=== PATIENT | female | born 1975 | race Caucasian/White ===

== ENCOUNTER 2022-05-04 03:42 | Emergency (ER) | payer BC, MEDICAID, SELFPAY ==
[2022-05-04 03:43] VITALS: BP 138/67; PULSE 75; RESP 16; TEMP 36.6; O2SAT 98; BMI 23.7
[2022-05-04 03:51] VITALS: BP 133/67; PULSE 70; RESP 16; TEMP 36.6; O2SAT 97
--- NOTE | 2022-05-04 04:05 | EDS_ITS ---
HPI History of Present Illness Chief Complaint: Edema Narrative Narrative: Patient is a 47-year-old female who states over the past 2 days she has noticed some increased swelling to the right side of her jaw/neck. She denies any trauma. She denies any fevers or chills difficulty breathing or swallowing. She states that the area has increased in size over the past 24 hours and this concerned her and therefore she comes in for evaluation. PFSH PFS Medical History Depression Hypertension Irregular heart beat Smoker Home Medications amoxicillin 875 mg-potassium clavulanate 125 mg tablet 1 tab PO BID 10 days #20 tabs 05/04/22 [Rx Last Taken Unknown] prednisone 20 mg tablet 40 mg PO DAILY 5 days #10 tabs 05/04/22 [Rx Last Taken Unknown] Allergy/AdvReac Type Severity Reaction Status Date / Time sulfamethoxazole Allergy Hives Verified 05/04/22 03:47 [From Bactrim] trimethoprim [From Bactrim] Allergy Hives Verified 05/04/22 03:47 Social History Smoking Status: Current every day smoker tobacco type: cigarettes ROS ROS ED Constitutional Constitutional ED: Denies chills or fever(s) ENT ENT ED: Reports other Details: Positive jaw/neck mass/swelling ; Denies sore throat Cardiovascular Cardiovascular: Denies chest pain Respiratory/Chest Respiratory/Chest: Denies cough or dyspnea Gastrointestinal Gastrointestinal: Denies abdominal pain, diarrhea, nausea or vomiting Genitourinary Genitourinary ED: Denies dysuria Musculoskeletal Musculoskeletal: Denies myalgias or neck pain Integumentary Denies rash Neurologic Neurologic: Denies headache(s) Hematologic/Lymphatic Hematologic/Lymphatic: Denies easy bleeding or easy bruising EXAM Physical Exam Const Vital Signs: 05/04/22 03:43 05/04/22 03:49 05/04/22 03:51 Temperature 97.8 F 97.8 F Temperature Source Oral Oral Pulse Rate 75 70 Respiratory Rate 98 H 16 Respiratory Pattern Normal Blood Pressure 138/67 H 133/67 H Blood Pressure Mean 90 89 Pulse Ox 97 Oxygen Delivery Method Room Air Room Air Positive well nourished and well developed General Appearance ED: well developed HEENT Reports moist mucous membranes HEENT Narrative: Patient has mild soft tissue swelling along the right anterior/inferior jaw. The area is approximately 1 x 1 cm and firm and movable. There is pain on palpation at the site. There is no overlying erythema or warmth. There is no brawny edema noted in the submental space to suggest Shahbaz's angina. Area of pain and swelling is most consistent with salivary gland. No meningeal signs noted. No crepitance. No pain with external ambulation of the thyroid cartilage. No tongue or lip swelling noted. No oral lesions or dental abscess present. No trismus change in voice or difficulty with secretions. Eyes PERRL and EOMs intact bilaterally Neck supple Neck Narrative: Soft tissue changes in the neck as documented above Resp normal respiratory effort and clear to auscultation bilaterally Cardio regular rate and regular rhythm Extremity normal to inspection Neuro oriented x3 and CN's II-XII intact bilaterally Sensorium / Orientation: alert Psych mental status grossly normal Skin no rashes or lesions noted MDM MDM MDM Narrative Medical decision making narrative: Patient presented to the ER afebrile and in no acute distress. She denied any difficulty breathing or swallowing and she had no change in voice. The area of her swelling was most consistent with the salivary gland. There is no brawny edema in the submental space to suggest Shahbaz's angina. At this time as there is no overlying erythema or warmth she is afebrile and she has no difficulty with secretions or breathing I do not feel that blood work or an imaging study would help. There is concern this is an infectious versus inflammatory versus obstructive process. Therefore should be given antibiotics and steroids to cover both the infection and inflammatory process. However she has no signs of systemic infection or respiratory difficulty there is no need for further work- up and patient can follow-up on an outpatient basis Discharge Plan Triage Chief Complaint: Edema ED Provider: Aurelio Luis Dx/Rx/DC Orders Clinical Impression: Acute sialoadenitis Instructions: ED Salivary Gland Infection, ED Salivary Gland Stones Prescriptions: New prednisone 20 mg tablet 40 mg PO DAILY 5 Days Qty: 10 0RF amoxicillin-pot clavulanate 875-125 mg tablet 1 tab PO BID 10 Days Qty: 20 0RF Primary Care Provider: Care Physician,No Primary Referrals: Star Jackson MD [Med Staff - Active Staff] - NOT,DEFINED [Non-Staff] - Activity Restrictions/Additional Instructions: Please take the medication as prescribed to cover for both infection and inflammation of the salivary gland. If you develop difficulty breathing or swallowing or you notice a fever over 100.4 or have any further concerns please return for repeat evaluation. Disposition Disposition: Home, Self Care
[2022-05-04] MEDS: predniSONE 20 MG Tablet 40 MG PO (04:10)
[2022-05-04] MEDS: Amox/Clavulanate 875 MG Tablet PO (04:11)
[2022-05-04 04:15] VITALS: BP 138/75; PULSE 87; RESP 16; O2SAT 97
== END 2022-05-04 04:17 | disposition home or self-care (01) ==
PROVIDERS: Emergency Provider Emergency Medicine; Visit Provider Emergency Medicine
DX: K11.21 Acute sialoadenitis (principal); I10 Essential (primary) hypertension; R60.9 Edema, unspecified; F17.210 Nicotine dependence, cigarettes, uncomplicated; Z79.52 Long term (current) use of systemic steroids
CPT/HCPCS: 99283

== ENCOUNTER 2022-07-08 09:08 | Emergency (ER) | payer BC, MEDICAID, SELFPAY ==
[2022-07-08 09:09] VITALS: O2SAT 97
[2022-07-08 09:10] VITALS: BP 169/116; PULSE 107; RESP 16; TEMP 37.3; O2SAT 98; BMI 21.9
--- NOTE | 2022-07-08 09:29 | EX.ED.DYSGE1 ---
HPI History of Present Illness Chief Complaint: General Illness Detail of Chief Complaint: Fever, cough, body aches, vomiting Informant: patient Narrative Narrative: Patient presents to the emergency department with complaint of fever, cough, body aches that started yesterday around midnight. Patient states that she has not vomited since yesterday at 5 PM. She feels like she might be on the upswing. She had subjective fever at home with chills but did not take her temperature. Patient denies sick contacts. She did take a home COVID test that was negative. She denies shortness of breath. She denies chest pain. She denies urinary symptoms. PFSH PFS Medical History Depression Fibromyalgia Hypertension Irregular heart beat Smoker Home Medications amoxicillin 875 mg-potassium clavulanate 125 mg tablet 1 tab PO BID 10 days #20 tabs 05/04/22 [Rx Last Taken Unknown] prednisone 20 mg tablet 40 mg PO DAILY 5 days #10 tabs 05/04/22 [Rx Last Taken Unknown] Allergy/AdvReac Type Severity Reaction Status Date / Time sulfamethoxazole Allergy Hives Verified 07/08/22 09:13 [From Bactrim] trimethoprim [From Bactrim] Allergy Hives Verified 07/08/22 09:13 Social History Smoking Status: Current every day smoker tobacco type: cigarettes ROS ROS ED Review of Systems ROS Unobtainable: other Constitutional Constitutional ED: Reports lethargy; Denies chills, fever(s), sweats or weight loss Eyes Eyes: Denies blurry vision, change in vision or diplopia ENT ENT ED: Denies rhinorrhea or sore throat Cardiovascular Cardiovascular: Denies chest pain, orthopnea or racing heartbeat Respiratory/Chest Respiratory/Chest: Reports cough; Denies dyspnea, dyspnea on exertion, orthopnea or sputum Gastrointestinal Gastrointestinal: Reports nausea and vomiting; Denies abdominal pain or diarrhea Genitourinary Genitourinary ED: Denies dysuria, hematuria or urinary frequency Musculoskeletal Musculoskeletal: Denies arthralgias, back pain, myalgias or neck pain Integumentary Denies abscess, Abrasions or rash Neurologic Neurologic: Denies headache(s) or weakness Psychiatric Psychiatric: Denies anxiety, depression or suicidal thoughts Endocrine Endocrinology: Denies polydipsia, polyphagia or polyuria Hematologic/Lymphatic Hematologic/Lymphatic: Denies easy bleeding, easy bruising or lymphadenopathy Allergic/Immunologic Allergic/Immunologic ED: Denies mouth swelling, tongue swelling or urticaria EXAM Physical Exam Const Vital Signs: 07/08/22 09:10 07/08/22 09:43 07/08/22 09:09 Temperature 99.1 F Temperature Source Temporal Pulse Rate 107 H Respiratory Rate 16 Respiratory Effort Normal Non-Labored Respiratory Pattern Normal Blood Pressure 169/116 H Blood Pressure Mean 133 Pulse Ox 98 97 Oxygen Delivery Method Room Air Room Air Positive well nourished and well developed General Appearance ED: well developed and NAD HEENT Reports TM's clear and moist mucous membranes normocephalic and atraumatic; Negative for trauma or tenderness Tympanic Membrane ED: Yes TM's clear Eyes PERRL and EOMs intact bilaterally General Eye ED: Negative for pale conjunctiva or scleral icterus Neck no lymphadenopathy, supple and no JVD General: Negative for tenderness Chest Wall inspection of chest normal and palpation of chest normal Chest: Negative for tenderness Resp normal respiratory effort and clear to auscultation bilaterally Effort and Inspection: Negative for respiratory distress or pain with movement Auscultation: Negative for rhonchi, wheezes or diminished lung sounds Cardio regular rate, regular rhythm, S1 normal heart sound, S2 normal heart sound and no murmurs Peripheral Pulses: pulses 2+ throughout GI normal to inspection, nondistended, normoactive bowel sounds, soft to palpation, non-tender, non-distended and no masses Back/Spine no CVA tenderness and no thoracic nor lumbar tenderness Extremity normal to inspection General Extremety ED: Negative for edema General Extremity: Negative for edema Neuro oriented x3, CN's II-XII intact bilaterally, no sensory deficits noted and gait normal Sensorium / Orientation: awake, alert, oriented to person, oriented to place and oriented to time Motor Exam: strength 5/5 throughout and strength abnormal Psych mental status grossly normal Skin no rashes or lesions noted and no wounds MDM MDM MDM Narrative Medical decision making narrative: Patient had a negative rapid COVID and negative rapid flu. I suspect a viral syndrome. Patient advised on symptomatic care. Patient advised to return if increasing shortness of breath, dehydration, or condition should worsen anyway. Lab Data Attestation: I reviewed the patient's lab results. Discharge Plan Triage Chief Complaint: General Illness ED Provider: Miroslava Bunn Dx/Rx/DC Orders Clinical Impression: Acute viral syndrome Instructions: ED Viral Syndrome (Adult) Prescriptions: No Action prednisone 20 mg tablet 40 mg PO DAILY 5 Days Qty: 10 0RF amoxicillin-pot clavulanate 875-125 mg tablet 1 tab PO BID 10 Days Qty: 20 0RF Primary Care Provider: Care Physician,No Primary Referrals: rByan Mcclelland MD [Med Staff - Nuclear Security Officer] - 3-5 Days Care Physician,No Primary [Primary Care Provider] - Disposition Disposition: Home, Self Care
== END 2022-07-08 11:46 | disposition home or self-care (01) ==
PROVIDERS: Emergency Provider Emergency Medicine; Visit Provider Emergency Medicine
DX: B34.9 Viral infection, unspecified (principal); F17.210 Nicotine dependence, cigarettes, uncomplicated
CPT/HCPCS: 87428; 99282

== ENCOUNTER 2022-08-16 14:44 | Emergency (ER) | payer BC, MEDICAID, SELFPAY ==
[2022-08-16 14:45] VITALS: BP 168/92; PULSE 82; RESP 15; TEMP 36.3; O2SAT 99; BMI 24.3
--- NOTE | 2022-08-16 15:20 | EDS_ITS ---
HPI History of Present Illness HPI Narrative: Patient presents with a cat bite to her right hand that occurred yesterday. Patient states she was trying to move the cat when the cat bit her. Patient states that the redness and swelling became worse today. Patient denies any fevers or chills. Patient noted some drainage from her right ring finger today. Patient states her pain is worse with flexion of her finger. Patient describes her pain as aching. Patient denies any paresthesias or weakness. Patient is unsure of her last tetanus. Patient states she does not think that the cat was rabid. However, she states the cat was a stray Chief Complaint: Bite Informant: patient Occured/Mechanism Comment: Cat bite Onset/Context/Timing Onset: Yesterday Context: Sudden Onset Timing: Continuous Quality of Pain: Aching Location: Right ring finger and right hand Worsened by: Movement Relieved by: Nothing Associated Symptoms Associated Symptoms: Negative for Parasthesia, Weakness or Loss of Funtion Narrative Tetanus Immunization: Unknown PFSH PFSH Medical History Depression Fibromyalgia Hypertension Irregular heart beat Smoker Home Medications prednisone 20 mg tablet 40 mg PO DAILY 5 days #10 tabs 05/04/22 [Rx Last Taken Unknown] amoxicillin 875 mg-potassium clavulanate 125 mg tablet 1 tab PO BID 10 days #20 tabs 08/16/22 [Rx Last Taken Unknown] Allergy/AdvReac Type Severity Reaction Status Date / Time sulfamethoxazole Allergy Hives Verified 08/16/22 14:45 [From Bactrim] trimethoprim [From Bactrim] Allergy Hives Verified 08/16/22 14:45 Social History Smoking Status: Current every day smoker tobacco type: cigarettes ROS ROS ED Constitutional Constitutional ED: Denies chills or fever(s) Eyes Eyes: Denies blurry vision or change in vision ENT ENT ED: Denies rhinorrhea or sore throat Cardiovascular Cardiovascular: Denies chest pain or palpitations Respiratory/Chest Respiratory/Chest: Denies cough or dyspnea Gastrointestinal Gastrointestinal: Denies nausea or vomiting Genitourinary Genitourinary ED: Denies dysuria or hematuria Musculoskeletal Musculoskeletal: Denies back pain or neck pain Integumentary Denies abscess or rash Neurologic Neurologic: Denies headache(s) or weakness Allergic/Immunologic Allergic/Immunologic ED: Denies mouth swelling or urticaria EXAM Physical Exam Const Vital Signs: 08/16/22 14:45 Temperature 97.4 F L Temperature Source Temporal Pulse Rate 82 Respiratory Rate 15 Blood Pressure 168/92 H Blood Pressure Mean 117 Pulse Ox 99 Oxygen Delivery Method Room Air Positive well nourished and well developed General Appearance ED: well developed and NAD Neck full ROM and supple Extremity Extremity Narrative: There is edema and erythema over the dorsal aspect of the right ring finger and third and fourth MCP joint areas. There is some limited range of motion in fl exion of the PIP and DIP joints of the right ring finger. There is some mild drainage from the PIP joint area of the right ring finger. Sensation was intact to light touch in all digits. Capillary refill was less than 2 seconds in all digits. Neuro oriented x3, CN's II-XII intact bilaterally, moves all extremities, no focal motor deficits and no sensory deficits noted Sensorium / Orientation: alert Motor Exam: strength 5/5 throughout Psych mental status grossly normal MDM MDM MDM Narrative Medical decision making narrative: Patient was given a tetanus booster. Patient was given a dose of Augmentin here. Bacitracin dressing will be applied. Patient was instructed to follow-up with her primary care physician in 5 to 7 days. Patient was given a prescription for Augmentin. Patient understands and is agreeable with the plan. All questions were answered. Discharge Plan Triage Chief Complaint: Bite ED Provider: Bryan Villegas Dx/Rx/DC Orders Clinical Impression: Cat bite of right hand, Cellulitis of right hand Instructions: ED Cat Bite Prescriptions: Continued amoxicillin-pot clavulanate 875-125 mg tablet 1 tab PO BID 10 Days Qty: 20 0RF No Action prednisone 20 mg tablet 40 mg PO DAILY 5 Days Qty: 10 0RF Primary Care Provider: Care Physician,No Primary Referrals: Bryan Mcclelland MD [Med Staff - Gauge And Instrument Inspector] - 3-5 Days Care Physician,No Primary [Primary Care Provider] - Disposition Disposition: Home, Self Care
[2022-08-16] MEDS: Amox/Clavulanate 875 MG Tablet PO (15:39)
[2022-08-16] MEDS: Diphth,Pertuss(Acell),Tet Vac 0.5 ML Vial IM (15:39)
== END 2022-08-16 15:59 | disposition home or self-care (01) ==
PROVIDERS: Emergency Provider Emergency Medicine; Visit Provider Emergency Medicine
DX: S61.451A Open bite of right hand, initial encounter (principal); L03.113 Cellulitis of right upper limb; I10 Essential (primary) hypertension; F17.210 Nicotine dependence, cigarettes, uncomplicated; W55.01XA Bitten by cat, initial encounter; Z23 Encounter for immunization
CPT/HCPCS: 90471; 90715; 99282

== ENCOUNTER 2022-10-13 09:04 | Emergency (ER) | payer BC, MEDICAID, SELFPAY ==
[2022-10-13 09:05] VITALS: BP 133/91; PULSE 83; RESP 15; TEMP 36.2; O2SAT 97; BMI 25.4
--- NOTE | 2022-10-13 09:17 | EKG12_ITS ---
Test Reason : CP Blood Pressure : / mmHG Vent. Rate : 082 BPM Atrial Rate : 082 BPM P-R Int : 140 ms QRS Dur : 094 ms QT Int : 392 ms P-R-T Axes : 045 001 030 degrees QTc Int : 457 ms Normal sinus rhythm Incomplete right bundle branch block Borderline ECG Confirmed by GLORIA LERMA, YEHUDA ([id number]), editor news VIVIAN NAVA ([id number]) on 10/19/2022 6:47:58 AM Referred By: ALFREDO/DK Confirmed By:IRENA CASTRO MD
--- NOTE | 2022-10-13 09:17 | RAD_ITS ---
STUDY: X-RAY CHEST REASON FOR EXAM: Female, 47 years old. Chest pain TECHNIQUE: Single AP portable view of the chest. COMPARISON: None. FINDINGS: EKG electrodes are seen. The lungs are clear and expanded. There is no demonstrated pleural abnormality. Normal size heart. Normal mediastinum and vannesa. Normal visualized pulmonary arteries. Normal visualized aortic arch and descending thoracic aorta. Normal visualized thoracic spine. Normal visualized ribs, clavicles, and shoulders. There is no demonstrated abnormality of the visualized soft tissue structures of the upper abdomen. RAD/Chest 1 View (Portable) IMPRESSION: Normal x-ray examination of the chest. Electronically Signed: Trery Ramirez MD at 9:47 EDT ,
--- NOTE | 2022-10-13 09:23 | EDS_ITS ---
HPI History of Present Illness Chief Complaint: Chest Pain Informant: patient Onset/Context/Timing Onset: Today and Hours Timing: Intermittent Quality: Positive for Dull Location: Substernal Current Severity: Gone Maximum Severity: Mild Worsened By: Nothing Relieved By: Nothing Associated Symptoms: Negative for Nausea, Vomiting, Diaphoresis, Dyspnea, Cough, Fever, Lightheadedness, Acid Reflux or Palpitations Narrative Narrative: 47-year-old female with past medical history of PTSD and anxiety. Says she was at work this morning around 1 AM and got lower sternal discomfort. Says she was doing anything exertional. Never anything like this before. She said would come and go and felt like someone stuck in her throat or like he swallowed something and it got stuck but she said she had not been eating. This came and went multiple times. No radiation of the pain. No shortness of breath. No nausea or diaphoresis. She left work went home checked her blood pressure was slightly elevated. Her pain is completely resolved and she is feeling better now. She thinks she may have had an anxiety attack. She has no history of DVT or PE. No recent travel surgery or immobilization. She has no cardiac history. Prior Similar Symptoms: No Recent Illness/Hospitalization: No CVD Risk Factors: Positive for Smoking; Negative for Hypertension, Diabetes or Hypercholesterolemia PE Risk Factors: Negative for Recent Travel/Surgery, Recent Immobilization, Prior DVT or PE, Cancer or OCP + Smoking + >/=35 TAD Risk Factors: Negative for Marfan's Syndrome PFSH PFS Medical History Depression Fibromyalgia Hypertension Irregular heart beat Smoker Home Medications prednisone 20 mg tablet 40 mg PO DAILY 5 days #10 tabs 05/04/22 [Rx Last Taken Unknown] amoxicillin 875 mg-potassium clavulanate 125 mg tablet 1 tab PO BID 10 days #20 tabs 08/16/22 [Rx Last Taken Unknown] Allergy/AdvReac Type Severity Reaction Status Date / Time sulfamethoxazole Allergy Hives Verified 08/16/22 14:45 [From Bactrim] trimethoprim [From Bactrim] Allergy Hives Verified 08/16/22 14:45 Social History Smoking Status: Current every day smoker tobacco type: cigarettes ROS ROS ED ROS Narrative Denies recent illness. Atypical chest pain today that was nonexertional. Review of Systems ROS Unobtainable: Denies due to encephalopathy Constitutional Constitutional ED: Denies chills or fever(s) Eyes Eyes: Reports none ENT ENT ED: Denies ear pain Cardiovascular Cardiovascular: Reports as per HPI and chest pain; Denies palpitations or racing heartbeat Respiratory/Chest Respiratory/Chest: Denies cough Gastrointestinal Gastrointestinal: Denies abdominal pain Genitourinary Genitourinary ED: Denies dysuria or hematuria Musculoskeletal Musculoskeletal: Denies arthralgias Integumentary Denies abscess Neurologic Neurologic: Denies headache(s) Psychiatric Psychiatric: Denies anxiety Endocrine Endocrinology: Denies cold intolerance Hematologic/Lymphatic Hematologic/Lymphatic: Denies easy bleeding or easy bruising Allergic/Immunologic Allergic/Immunologic ED: Denies mouth swelling or tongue swelling EXAM Physical Exam Narrative Exam Narrative: 47-year-old female no acute distress. Vital signs stable afebrile. Current blood pressure 133/91. Heart rate 83. Pulse ox 97% on room air no signs hypoxia. H EENT exam unremarkable. Neck nontender no JVD. Lungs are clear equal symmetrical bilaterally. Heart regular rhythm rate about 80 no murmur. Chest wall nontender. Abdomen soft nontender. Right upper quadrant nontender. Back nontender. Moving all 4 extremities. Neurovascular intact. Calves are nontender without edema or cords. Equal symmetrical radial pulses. Neurologic exam normal. Const Vital Signs: 10/13/22 09:05 10/13/22 09:07 10/13/22 09:34 Temperature 97.1 F L Temperature Source Temporal Pulse Rate 83 Respiratory Rate 15 Respiratory Effort Normal Non-Labored Blood Pressure 133/91 H Blood Pressure Mean 105 Pulse Ox 97 98 Oxygen Delivery Method Room Air Room Air 10/13/22 10:22 Temperature Temperature Source Pulse Rate 66 Respiratory Rate 23 H Respiratory Effort Blood Pressure 114/87 H Blood Pressure Mean 96 Pulse Ox 96 Oxygen Delivery Method Room Air Positive well nourished and well developed; Negative for obese, cachectic, contractures or unkempt General Appearance ED: well developed and NAD; Negative for unkempt, cachectic, contractures or pallor Nutritional Appearance: Negative for cachectic or obese HEENT Reports moist mucous membranes normocephalic and atraumatic; Negative for trauma or tenderness Eyes PERRL and EOMs intact bilaterally General Eye ED: Negative for pale conjunctiva or scleral icterus Neck no lymphadenopathy, supple and no JVD General: Negative for tenderness Chest Wall inspection of chest normal and palpation of chest normal Chest: Negative for tenderness Resp normal respiratory effort and clear to auscultation bilaterally Effort and Inspection: Negative for respiratory distress Auscultation: Negative for rales, rhonchi or wheezes Cardio regular rate, regular rhythm, S1 normal heart sound, S2 normal heart sound and no murmurs Peripheral Pulses: pulses 2+ throughout GI normal to inspection, nondistended, normoactive bowel sounds, soft to palpation, non-tender, non-distended and no masses Back/Spine no CVA tenderness and no thoracic nor lumbar tenderness General Back: Negative for CVA tenderness Cervical Spine: Negative for cervical spine tenderness Extremity Negative for normal to inspection General Extremety ED: Negative for edema or pulses abnormal General Extremity: Negative for edema or pulses abnormal Neuro oriented x3, CN's II-XII intact bilaterally and no sensory deficits noted Sensorium / Orientation: awake, alert, oriented to person, oriented to place and oriented to time; Negative for confused, lethargic or stuporous Motor Exam: strength 5/5 throughout Psych mental status grossly normal Appearance: Negative for unkempt Attitude: No agitated Mood & Affect: Negative for depressed, anxious or tearful Skin no rashes or lesions noted and no wounds General Skin Exam: Negative for jaundice or pallor Rashes: No rashes noted Trauma: Negative for abrasion or laceration MDM MDM MDM Narrative Medical decision making narrative: 47-year-old with atypical chest discomfort that may have been esophageal spasm or reflux. Currently she is symptom-free. She has had no recent exertional symptoms. No cardiac history. No history of DVT or PE or risk factors. She has a benign exam. The pain is not reproducible. Currently she is symptom- free. She undergo cardiac work-up. My clinical suspicion for this being cardiac is very low. The work-up is negative she will be discharged home. Repeat exam patient is doing well at 10:25 AM. Repeat exam normal. We went over all of her test results including her EKG and chest x-ray. My suspicion for this being cardiac is extremely low. I do not think she needs a second troponin. She will be discharged home History & Record Review Discussion w/independent historian: Patient Lab Data Attestation: I reviewed the patient's lab results. Lab results narrative: CBC normal. White count 8.7. H&H of 14 and 44. Electrolytes unremarkable gap of 0. BUN and creatinine are 12 and 0.8 normal. Glucose 99. Troponin normal at 3. Labs: Laboratory Results - last 24 hr 10/13/22 10/13/22 09:30 09:30 WBC 8.7 RBC 4.72 Hgb 14.7 Hct 44.1 MCV 93.4 MCH 31.1 MCHC 33.3 RDW Std Deviation 43.1 RDW Coeff of Cody 12.4 Plt Count 277 MPV 9.6 Immature Gran % (Auto) 0.200 Neut % (Auto) 64.5 Lymph % (Auto) 25.6 [place] % (Auto) 7.6 Eos % (Auto) 1.5 Baso % (Auto) 0.6 Absolute Neuts (auto) 5.6 Absolute Lymphs (auto) 2.23 Nucleated RBC % 0 Sodium 137 Potassium 4.1 Chloride 108 H Carbon Dioxide 29.0 Anion Gap 0 L BUN 12 Creatinine 0.88 Estim Creat Clear Calc 76.85 Est GFR (MDRD) Af Amer 89 Est GFR (MDRD) Non-Af 73 BUN/Creatinine Ratio 13.7 Glucose 99 Calcium 8.6 Troponin I High Sens 3 Radiography Chest X-Ray - ED: 1 View, Read by ED Physician, Read by Radiologist, Heart, Lungs, Mediastinum, Bony Structures and No Acute Disease Diagnostic Testing: Clinical Impression(s) from Imaging Studies Chest X-Ray 10/13/22 09:17 IMPRESSION: Normal x-ray examination of the chest. Electronically Signed: Terry Ramirez MD at 9:47 EDT , Chest x-ray, portable, single view interpreted myself and the radiologist shows no acute abnormality. Normal cardiac silhouette mediastinum. Normal lung isaacs. Rhythm Strip Rhythm Strip: Sinus Rhythm Rate: 82 Ectopy: None EKG Initial EKG: Attestation: I personally reviewed and interpreted this EKG as follows: Interpretation: Sinus Rhythm and No Acute Injury Pattern Comments: Normal sinus rhythm rate 82 no acute signs of IL or ischemia. Discharge Plan Triage Chief Complaint: Chest Pain ED Provider: Juan Reece Dx/Rx/DC Orders Clinical Impression: Chest pain, History of anxiety Instructions: ED Chest Pain, Uncertain Cause Prescriptions: No Action prednisone 20 mg tablet 40 mg PO DAILY 5 Days Qty: 10 0RF amoxicillin-pot clavulanate 875-125 mg tablet 1 tab PO BID 10 Days Qty: 20 0RF Primary Care Provider: Care Physician,No Primary Referrals: Yovanny Acuna MD [Med Staff - Manager Operations] - 1 Week if not improving Care Physician,No Primary [Primary Care Provider] - Activity Restrictions/Additional Instructions: Your physical exam, blood work, EKG and chest x-ray are all normal. Clinically I do not think this was heart related it may have been your esophagus. Follow-up with a primary care physician if not improving return if you are feeling a lot worse. Disposition Disposition: Home, Self Care
[2022-10-13 09:34] VITALS: O2SAT 98
[2022-10-13 09:37] LABS: Absolute Lymphocyte Count 2.23 X10^3/uL (0.83-4.51); Absolute Neutrophil Count 5.6 X10^3/uL (2.0-7.7); Basophil# 0.05 X10^3/uL; Basophil% 0.6 % (0-1); Eosinophil# 0.13 X10^3/uL; Eosinophils% 1.5 % (0-5); Hematocrit 44.1 % (37-47); Hemoglobin 14.7 g/dL (12.0-15.0); Lymphocyte # 2.23 X10^3/ul (0.83-4.51); Lymphocyte % 25.6 % (19-41); Mean Corp Hgb Conc 33.3 g/dL (32-36); Mean Corpuscular Hgb 31.1 pg (27.0-32.0); Mean Corpuscular Volume 93.4 fL (81-99); Mean Platelet Vol. 9.6 fl (6.2-12.0); Monocyte# 0.66 X10^3/uL; Monocyte% 7.6 % (0-10); NRBC Flagged by Analyzer 0 % (0-5); Neutrophil # 5.62 X10^3/uL (2.7-7.7); Neutrophil % 64.5 % (47-70); Platelet Count 277 K/mm3 (150-450); RBC Distribution Width CV 12.4 % (11.6-14.6); RBC Distribution Width SD 43.1 fl (35.1-43.9); Red Blood Count 4.72 M/mm3 (4.2-5.4); White Blood Count 8.7 K/mm3 (4.4-11.0)
[2022-10-13 09:56] LABS: Anion Gap 0 (5-15); BUN 12 mg/dL (7-18); BUN/Creat Ratio 13.7 RATIO (10-20); Calcium,Total 8.6 mg/dL (8.5-10.1); Chloride 108 mmol/L (98-107); Creatinine, Serum 0.88 mg/dL (0.55-1.02); EST Glomerular Filtration Rate 73 mL/min (>60); Est Glom Filt Rate - Afr Amer 89 mL/min (>60); Estimated Creatinine Clearance 76.85 ml/min; Glucose 99 mg/dL (74-106); Potassium 4.1 mmol/L (3.5-5.1); Sodium Level 137 mmol/L (136-145); Troponin-I HS 3 pg/mL (3.0-54.0)
[2022-10-13 10:22] VITALS: BP 114/87; PULSE 66; RESP 23; O2SAT 96
== END 2022-10-13 10:42 | disposition home or self-care (01) ==
PROVIDERS: Emergency Provider Emergency Medicine; Visit Provider Emergency Medicine
DX: R07.9 Chest pain, unspecified (principal); F17.210 Nicotine dependence, cigarettes, uncomplicated; I10 Essential (primary) hypertension; Z86.59 Personal history of other mental and behavioral disorders
CPT/HCPCS: 71045; 80048; 84484; 85025; 93005; 99284; A4216

== ENCOUNTER 2023-04-18 16:15 | Emergency (ER) | payer BC, MEDICAID, SELFPAY ==
[2023-04-18 16:16] VITALS: BP 163/84; PULSE 93; RESP 16; TEMP 36.4; O2SAT 97; BMI 22.5
--- NOTE | 2023-04-18 16:26 | ED.VIS.BACK ---
HPI History of Present Illness Chief Complaint: Back Informant: patient Onset/Context/Timing Onset: Days Context: Gradual Onset Narrative Narrative: Patient presents secondary to back pain. She has a history of a lipoma in her lower back that has been surgically removed multiple times. She states she noticed a lump in the same area again 3 days ago and is concerned that her lipoma has recurred. This causes her pain when she stands or moves. She does not remember who her prior surgeon was. PFSH PFSH Medical History Depression Fibromyalgia Hypertension Irregular heart beat Smoker Home Medications naproxen 500 mg tablet (Naprosyn) 500 mg PO BID PRN pain #20 tabs 04/18/23 [Rx Last Taken Unknown] Allergy/AdvReac Type Severity Reaction Status Date / Time sulfamethoxazole Allergy Hives Verified 04/18/23 16:16 [From Bactrim] trimethoprim [From Bactrim] Allergy Hives Verified 04/18/23 16:16 Social History Smoking Status: Current every day smoker tobacco type: cigarettes ROS ROS ED Constitutional Constitutional ED: Denies chills or fever(s) ENT ENT ED: Denies rhinorrhea Cardiovascular Cardiovascular: Denies chest pain Respiratory/Chest Respiratory/Chest: Denies cough or dyspnea Gastrointestinal Gastrointestinal: Denies abdominal pain, nausea or vomiting Musculoskeletal Musculoskeletal: Reports back pain; Denies extremity pain Integumentary Denies Abrasions or rash Neurologic Neurologic: Denies headache(s) or weakness Allergic/Immunologic Allergic/Immunologic ED: Denies lip swelling or urticaria EXAM Physical Exam Const Vital Signs: 04/18/23 16:16 Temperature 97.5 F L Temperature Source Temporal Pulse Rate 93 Respiratory Rate 16 Blood Pressure 163/84 H Blood Pressure Mean 110 Pulse Ox 97 Oxygen Delivery Method Room Air Positive well nourished and well developed General Appearance ED: well developed HEENT Reports normocephalic and head/scalp atraumatic Eyes PERRL and EOMs intact bilaterally Neck supple Chest Wall inspection of chest normal and palpation of chest normal Resp normal respiratory effort and clear to auscultation bilaterally Cardio regular rate and regular rhythm GI normal to inspection, nondistended, normoactive bowel sounds Palpation: soft Back/Spine Back/Spine Narrative: No midline tenderness. About 4 cm to the right of midline over the lumbar paraspinal region there is a palpable lipoma. There are no overlying skin changes. Extremity normal to inspection Neuro oriented x3 and no sensory deficits noted Sensorium / Orientation: alert Motor Exam: strength 5/5 throughout Psych mental status grossly normal Skin no rashes or lesions noted MDM MDM MDM Narrative Medical decision making narrative: Patient be given prescription for anti-inflammatories as well as Lidoderm patches. She be referred to general surgery for follow-up for possible lipoma excision. Differential diagnosis includes lipoma versus scar tissue. Discharge Plan Triage Chief Complaint: Back ED Provider: Radha De La Fuente Dx/Rx/DC Orders Clinical Impression: Lipoma Instructions: ED Lipoma Prescriptions: New naproxen [Naprosyn] 500 mg tablet 500 mg PO BID PRN (Reason: pain) Qty: 20 0RF Primary Care Provider: Care Physician,No Primary Referrals: Michelle Hurt MD [Med Staff - Active Staff] - As Needed Care Physician,No Primary [Primary Care Provider] - Disposition Disposition: Home, Self Care
[2023-04-18] MEDS: Lidocaine 5% Patch 1 PATCH TOPICAL (16:36)
[2023-04-18] MEDS: Naproxen 500 MG Tablet PO (16:36)
== END 2023-04-18 16:45 | disposition home or self-care (01) ==
LOC: ED 16:42
PROVIDERS: Emergency Provider Emergency Medicine; Visit Provider Emergency Medicine
DX: D17.39 Benign lipomatous neoplasm of skin and subcutaneous tissue of other sites (principal); I10 Essential (primary) hypertension; F17.210 Nicotine dependence, cigarettes, uncomplicated
CPT/HCPCS: 99284

== ENCOUNTER 2023-05-10 12:28 | Day surgery (SDC) | payer MEDICAID, SELFPAY ==
[2023-05-10] MEDS: Lactated Ringers 1,000 ML 15 ML IV (13:06)
[2023-05-10 13:07] VITALS: BP 159/79; PULSE 81; RESP 18; TEMP 36.3; O2SAT 99; BMI 23.8
--- NOTE | 2023-05-10 14:08 | PCM.HP.BLA ---
History and Physical Date of Admission: 05/10/23 Date of Service: 04/29/23 MR#: [id number] Acct: [id number] Name: PUSHPA POWELL Rep #: [id number] : 1975 Provider: Dr. Michelle Hurt MD Age/Sex: 47/F Location: [facility] Status: Signed Intake Vital Signs 04/18/2316:16 04/29/2313:57 Height 5 ft 7 in 5 ft 7 in Weight: 156 lb 6 oz BMI 24.5 BP 150/94 H Blood Pressure Location Rt brachial Position Sitting Respiration 17 Pulse 80 Pulse Source Monitor Temp 97.7 F L Temp Source Temporal Pulse Oximetry (%) 99 Oxygen Delivery Method room air Intake Visit Reasons: LIPOMA NEAR SPINE Chief Complaint: lipoma near spine Is patient in pain?: No Allergies sulfamethoxazole [From Bactrim] Allergy (Verified 04/29/23 13:58) Hivestrimethoprim [From Bactrim] Allergy (Verified 04/29/23 13:58) Hives Medications naproxen 500 mg tablet (Naprosyn) 500 mg PO BID PRN pain #20 tabs 04/18/23 [Rx Confirmed 04/29/23] PFSH Medical History Depression Fibromyalgia Hypertension Irregular heart beat Smoker Social History (Updated 04/29/23 @ 13:57 by Kathleen Ken) Smoking Status: Current every day smoker tobacco type: cigarettes alcohol intake: current HPI HPI HPI: 48-year-old female presents due to recurrent lower back lipomas. Patient states her last excision was about 10 years ago. Patient has 2 locations on her lower back that she has had recurrent lipomas and had them excised previously. The 1 more on the right is painful to palpation also hurts more with work currently. Patient is interested in having it excised again. Patient states that she was told there were fingers of the lipoma when it was excised previously. ROS General General: Yes fatigue; No weight change, appetite, colon cancer, breast cancer or weakness HEENT HEENT: No difficulty swallowing, eye injury, eye surgery, swollen glands or hoarseness Endo Endocrine: No thyroid disease, diabetes mellitus, thyroid cancer, Hair loss, heat intolerance or cold intolerance Skin Skin: No rash or changing moles Musc Musculoskeletal: Yes back problems; No arthritis, rheumatoid arthritis, gout or joint pain Cardio Cardiovascular: No murmur, pacemaker, heart disease, atrial fibrillation, high blood pressure, heart attack, heart stent, palpitations, shortness of breat with exertion or chest pain Psych Psychiatric: Yes depression and anxiety; No hearing voices Resp Respiratory: No shortness of breath, No sleep apnea, No cough, No COPD, No asthma, No emphysema and No wheezing Gastro Gastrointestinal: No abdominal pain, No nausea or vomiting, No diarrhea, No constipation, No blood in stool, No acid reflux, No hemorrhoids, No ulcers, No gallbladder problem and No black,tarry stools Arvin Hematologic: No blood thinners, No blood disorders, No bleeding, No anemia and No blood clots Neuro Neurologic: No system reviewed and no additional complaints, except as documented, No as per HPI, No abnormal gait, No abnormal hearing, No abnormal movements, No abnormal speech, No behavioral changes, No burning sensations, No confusion, No convulsions, No disequilibrium, No dizziness, No localized weakness, No frequent falls, No headache(s), No lack of coordination, No loss of vision, No memory loss, Yes numbness, No other visual disturbances, No radicular pain, No restless legs, No sensory deficit, No syncope, Yes tingling, No tremor(s), No weakness and No other Exam Const General: cooperative and comfortable HENMT Head: normocephalic and atraumatic Neck Neck: supple Resp Effort & Inspection: normal respiratory effort Cardio Rate: regular rate GI Inspection: non-distended Skin Other: Right medial lower back well-healed incision, palpable lipomas underneath the incision about 5 x 4 cm-tender to palpation. Patient has a well-healed left medial lower back incision as well. Neuro General: CN's II-XI intact bilaterally Extrem General: normal to inspection Psych Mental Status: mental status grossly normal Attitude: cooperative Assessment and Plan Assessment and Plan (1) Lipoma of back: Status: Acute Plan Plan for excision of the right medial lower back recurrent lipomas in the OR. Risks and benefits were discussed with patient including not limited to risk of bleeding, infection, recurrent lipomas patient no further question this time. Patient agreed to proceed. Michelle Hurt M.D. Pager: [phone] [facility] [address] [place] [address], [facility], [address] [place] [id number] Office: [phone] Coding Level of Care Code Off vis,new,level 3 Diagnoses Lipoma of back D17.1 04/30/23 1055 <Electronically signed by Michelle Hurt MD> Date Michelle Hurt MD
--- NOTE | 2023-05-10 14:15 | LES_PTH ---
PATIENT: PUSHPA POWELL LOC: [facility] U#:[id number] AGE/SX: 48/F ROOM: RE05/10/[address]: Dr. Michelle Hurt MD : 1975 BED: DIS: 05/10/2023 SPEC #: [id number] RECD: 05/10/23 18:21 STATUS: [place] RECatherine #: [id number] DAVINA: 05/10/23 14:[address]: Michelle Hurt DEPT: SURGICAL PATHOLOGY RECD BY: Cristy Garcia ENTERED: 05/11/23 08:52 SP TYPE: Lesion OTHR DR: No Primary Care Phys Tissues: A - Skin of leg, NOS B - Soft tissues, NOS Procedures: Surgery Specimen Level III Surgery Specimen Level IV HEADER OPERATION: Excision lipoma right medial lower back PRE-OP DIAGNOSIS: Lipoma of back TISSUE SUBMITTED: A - Right hip skin lesion, B - Lipoma right medial lower back MICROSCOPIC DIAGNOSIS A. Skin lesion of right hip, biopsy: Seborrheic keratosis. B. Soft tissue mass of right medial low back, excision: Mature adipose tissue (lipoma). AM:sky 05/12/2023 MICROSCOPIC DESCRIPTION Slides are reviewed. GROSS DESCRIPTION A - Received in fixative is one container labeled with the patient's name and designated right hip skin lesion. The specimen consists of a piece of joshi-white skin measuring 0.9 x 0.5 x 0.3 cm. The specimen is inked, serially sectioned and submitted entirely in one cassette. B - Received in fixative is one container labeled with the patient's name and designated lipoma right medial lower back. The specimen consists of multiple variable sized pieces of joshi-yellow adipose tissue that in aggregate measure 5.0 x 5.0 x 2.0 cm. Sections reveal yellow adipose cut surfaces without area of hemorrhage, necrosis or cystic degeneration. Feed Mill Manager sections are submitted in two cassettes. / SJ:sky 05/11/2023 TC:5 CPT: 10381, 30476
[2023-05-10] MEDS: Cefazolin 2 GM in 0.9% Normal Saline (100mL Bag) 100 ML IV (14:34)
[2023-05-10] MEDS: Bupivacaine Mpf 0.5% 30 ML VIAL (14:52)
--- NOTE | 2023-05-10 15:34 | OP.PCM_ITS ---
Report of Operation Date of Procedure: 05/10/23 Pre-Operative Diagnosis: Recurrent right lower back lipoma, right hip skin lesi on Post-Operative Diagnosis: Same Surgery/Procedure Performed:: Excision of recurrent right lower back lipoma, excision of the right hip skin lesion Surgeon: Joe Pate
--- NOTE | 2023-05-10 15:34 | PCM.OPRPT ---
Report of Operation Date of Procedure: 05/10/23 Pre-Operative Diagnosis: Recurrent right lower back lipoma, right hip skin lesion Post-Operative Diagnosis: Same Surgery/Procedure Performed:: Excision of recurrent right lower back lipoma, excision of the right hip skin lesion Surgeon: Michelle Hurt meat and seafood clerk: Birgit Abdi Type of Anesthesia: General/Supplemental Anesthesiologist: Joe Pate Special Medications: Ancef 2 g IV x1 Specimen's removed: 1. Right hip skin lesion, 2. Recurrent right lower back lipoma Estimated Blood Loss (mL): 10 cc Description of Procedure: Patient was brought to the operating placed BiLAP room table. Timeout was completed verifying correct patient, procedure, site, positioning, special equipment prior to beginning procedure. General anesthesia was induced. Left lateral decubitus position with appropriate padding. Right hip and right lower back were prepped and draped in usual sterile fashion with chlorhexidine. An elliptical incision was made 15 blade scalpel around the right hip skin lesion?about 3 mm in size. Cautery was used to divide the subcutaneous tissue. This was sent to pathology. This was closed with subdermal sutures of 3-0 Vicryl and skin was closed with 4-0 Monocryl and Steri-Strips/OpSite. Right lower back incision was made at the same area as previous with a 15 blade scalpel. This was deepened with electrocautery. Lipoma was excised using electrocautery. Lipoma did have several different 'fingers.' Specimen was 4 cm x 4 cm x 2 cm. This was sent to pathology. Wound was irrigated with saline and hemostasis was assured. Wound was closed with subdermal sutures of the 3-0 Vicryl and skin was closed with 4-0 Monocryl and Steri-Strips/OpSite. Patient was extubated. Patient tolerated procedure well was taken the postanesthesia care unit in stable condition.
[2023-05-10 15:54] VITALS: BP 159/79; BP 166/102; PULSE 85; RESP 18; TEMP 36.8; O2SAT 96
[2023-05-10 16:00] VITALS: BP 159/79; BP 171/86; PULSE 60; RESP 18; O2SAT 93
--- NOTE | 2023-05-10 16:02 | DCINST_ITS ---
Discharge Instructions Diet Discharge Diet: Light diet - advance as tolerated Activity Discharge Activity: May Not Drive (while taking narcotic pain medications.) May shower in (days): 1 Dressing / Incision Call your doctor if your incision/area has: Continuous Slow Oozing, Sudden Increased Bleeding, Increased Pain/ Swelling, Increased Redness, Foul Smelling Discharge and Swelling at the incision site Call your doctor if you observe: Fever of 101 or Higher Remove Dressing in: 2 days Cleanse incision/area with: Soap & Water Additional Dressing/Incision Instructions:: Steri-Strips will fall off in 7 to 10 days, if they do not fall off okay to remove after 10 days. Follow Up Care Please Follow Up With: Michelle Hurt MD When: Call the office for a follow-up appointment 2 weeks; after 5 PM and on the weekends call [phone] with any concerns. Test Results: Test results from this visit will be discussed in further detail at your follow- up appointment, if applicable. Discharge Plan Admission Attending Provider: Michelle Hurt Primary Care Provider: Care Physician,Kathe Primary Discharge Orders/Prescriptions Prescriptions: New oxycodone-acetaminophen 5-325 mg tablet 1 tab PO Q6H PRN (Reason: pain) 3 Days Qty: 5 0RF Referrals / Follow Up: Care Physician,Kathe Primary [Primary Care Provider] - Disposition Disposition (needs filled in before D/C Order can be placed): Home, Self Care
[2023-05-10 16:14] VITALS: BP 147/77; BP 159/79; PULSE 71; RESP 18; O2SAT 95
[2023-05-10 16:31] VITALS: BP 133/89; BP 159/79; PULSE 70; RESP 18; TEMP 35.8; O2SAT 96
[2023-05-10 16:54] VITALS: BP 159/79
== END 2023-05-10 16:55 | disposition home or self-care (01) ==
LOC: SDC 12:29 → AC 12:31
PROVIDERS: Referring Provider Surgery; Visit Provider Surgery
PROC: (CPT 11400; principal; 2023-05-10 14:00)
DX: D17.1 Benign lipomatous neoplasm of skin and subcutaneous tissue of trunk (principal); L82.1 Other seborrheic keratosis; I10 Essential (primary) hypertension; F17.210 Nicotine dependence, cigarettes, uncomplicated
CPT/HCPCS: 11400; 11404; 12032; 88304; 88305; J7120; J2405

== ENCOUNTER 2023-07-13 16:30 | Outpatient (RCR) | payer MEDICAID, SELFPAY ==
--- NOTE | 2023-07-07 11:29 | HP.PTEVAL ---
Patient's Visit Information Visit Information Visit Information: PUSHPA POWELL is a 48 year old F referred to Physical Therapy by Dr. Sandy Ham MD with a diagnosis of Dorsalgia. Date of Evaluation: 07/06/23 Physical Therapist: Jaquan Appiah DPT Visit Plan Frequency: 2x /Week Duration: 4 Weeks Plan: Start with core strengthen in neutral spine, add in pain free lumbar ROM as tolerated. I want to try to reduce stress to lumbar spine and progress ROM to see if we can get better tolerance to flexion. Subjective Subjective: Pt is here today for her initial evaluation with diagnosis of dorsalgia. Pt. reports having R sided low back pain for a few years, but has become worse recently. Pt. did have a lipoma removed at the same area, but did not change her pain. She reports increased pain with bending, prolonged standing, lifting, work related activities. 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 No xrays, but is planning to get one soon. She does have some pain down her R side at times, but also has a buzzing feeling at her L lateral leg. Pt. reports a catching feeling when she bends forward. Mornings are okay. Symptoms seem to worsen as the day progresses. Pt. is hopeful to reduce symptoms in order to get back to all work and recreational activities without limitations. Pain R side of lumbar spine: Pain Intensity (Out of 10): 2 Pain Intensity Range: 1 and 8 Comment: worse with palpation Objective Objective: POSTURE: Pt. has slight flexed posture, but able to self correct. No lateral weight shift. PALPATION: pt. very tender at R scar near L4/L5 region and R SI region. NEURO: Pt. has normal DTR, sensation in BLEs. Pt. is able to rise on heels and toes without issues. ROM: LUMBAR SPINE: Flexion: full, but has increased pain at ~75% of flexion then better. ext normal NE, SB full NE, rotation normal B NE. Normal HS and hip flexor length. MMT: 5/5 throughout distal LE. Pt. has fair- core strength. hip: flexion 4/5, abd 4/5, ext 4/5 all bilaterally. GAIT: pt. has fairly normal gait pattern. Special Tests L/S Slump test left side: Negative L/S Slump test right side: Negative L/S Left Straight Leg Raise: Negative L/S Right Straight Leg Raise: Negative Lumbar Standing: Flexion - Mechanical Response: No effect Lumbar Standing: Flexion - Symptoms During Testing: Abolishes Lumbar Standing: Flexion - Symptoms After Testing: No effect Comments:: catching feeling on R side and with returning Lumbar Standing: Extension - Mechanical Response: No effect Lumbar Standing: Extension - Symptoms During Testing: No effect Lumbar Standing: Extension - Symptoms After Testing: No effect Lumbar Standing: Right Side Glides - Mechanical Response: No effect Lumbar Standing: Right Side [place] - Symptoms During Testing: No effect Lumbar Standing: Right Side [place] - Symptoms After Testing: No effect Lumbar Standing: Left Side [place] - Mechanical Response: No effect Lumbar Standing: Left Side [place] - Symptoms During Testing: No effect Lumbar Standing: Left Side [place] - Symptoms After Testing: No effect Balance/Special Test Scores Oswestry Low Back Score: 27 Goals Goal 1:: LTG: Pt. to be I with HEP for neutral spine core stability. Goal Time Frame: 4-6 Weeks Goal 2:: STG: Pt. have full lumbar flexion without feeling of catching. Goal Time Frame: 2 Weeks Goal 3:: LTG: Pt. to have increased core and hip strength by 1/2 grade throughout. Goal Time Frame: 4-6 Weeks Goal 4:: LTG: pt. to complete all work related activities without increase in symptoms. Goal Time Frame: 4-6 Weeks Rehabilitation Potential Physical Therapy Diagnosis: Pt. has signs and symptoms consistent with dorsalgia. Pt. did not have any + signs of radiculopathy this date. She is very tender at the R side of SI, L4/L5 region. Pt. would benefit from PT to increase her core stability in order to tolerate all work related activities. Rehabilitation Potential: Good Anticipated Interventions Patient/Client Instruction: Educate patient on: Condition, Plan of Care, Risk Factors and Benefits of Fitness Program For the Purpose of:: To improve decision making, To facilitate caregiver knowledge, To improve self management, To prevent re-injury and To improve ability to perform tasks related to life management Therapeutic Exercise to Include: Strength training, Power training, Coordination, Postural training, Flexibilty training, Passive ROM and Active ROM For the Purpose of:: To decrease pain, To increase ROM, To improve nutrient delivery to tissue, To increase oxygenation perfusion, To improve muscle performance and motor function, To improve ability to perform ADL's, To increase tolerance to activity/condition/position, To improve performance and independence with ADL's, To improve health of tissue, To decrease soft tissue restriction and To increase flexibility/ROM Ultrasound (thermal/non thermal): Yes For the Purpose of:: To decrease pain, To decrease swelling/inflammation and To increase ROM Text: Thank you for the opportunity to evaluate your patient. For Medicare and Medicare HMO plans, please review the plan of care and approve it. It will need to be FAXED BACK to us at [phone] for Medicare purposes. For Medicare only, by signing this I certify the plan of care. Please let me know if there are questions or concerns regarding this plan of care. Physician Signature: Date:
--- NOTE | 2023-10-22 09:08 | HP.PT.NRP ---
Patient Information Patient Information: PUSHPA POWELL was seen in my office for initial evaluation on 07/06/23. The following Plan of Care was established for this patient: POC Established Initial Frequency: 2x /Week Initial Duration: 4 Weeks Anticipated Interventions Patient/Client Instruction: Educate patient on: Condition, Plan of Care, Risk Factors and Benefits of Fitness Program For the Purpose of:: To improve decision making, To facilitate caregiver knowledge, To improve self management, To prevent re-injury and To improve ability to perform tasks related to life management Therapeutic Exercise to Include: Strength training, Power training, Coordination, Postural training, Flexibilty training, Passive ROM and Active ROM For the Purpose of:: To decrease pain, To increase ROM, To improve nutrient delivery to tissue, To increase oxygenation perfusion, To improve muscle performance and motor function, To improve ability to perform ADL's, To increase tolerance to activity/condition/position, To improve performance and independence with ADL's, To improve health of tissue, To decrease soft tissue restriction and To increase flexibility/ROM Ultrasound (thermal/non thermal): Yes For the Purpose of:: To decrease pain, To decrease swelling/inflammation and To increase ROM Last Seen Last Seen: This patient was last seen in our office 07/13/23. Pertinent comments regarding their Physical therapy will appear below: Pt. was seen in PT for her eval and 1 visit, but has not been back since. Pt. has not been seen in several months and will be DC from PT at this point in time. At this point I will be discontinuing this patient from physical therapy. I would be happy to see this patient again in the future if found appropriate by the physician. Thank you! Jaquan Appiah, DPT Balance/Gait/Functional tests Balance/Special Test Scores Oswestry Low Back Score: 27
== END 2023-07-13 19:00 | disposition home or self-care (01) ==
LOC: PT 16:30
PROVIDERS: PCP Family Medicine; Visit Provider Family Medicine
DX: M54.9 Dorsalgia, unspecified (principal)
CPT/HCPCS: 97113; 97161

== ENCOUNTER → 2023-10-07 | Outpatient (CLI) | payer MEDICAID, SELFPAY ==
--- NOTE | 2023-10-07 15:11 | MRI_ITS ---
HISTORY: Back pain, scoliosis. Right-sided pain. TECHNIQUE: Multiplanar and multisequence MR images of the lumbar spine were obtained without intravenous contrast. 142 images. COMPARISON: XR 07/06/2023. FINDINGS: VERTEBRAE: Vertebral body heights maintained. No significant bone marrow signal abnormality. ALIGNMENT: No anterior or posterior subluxation. No significant lateral curvature. SPINAL CANAL: Normal morphology and position of the conus medullaris at T12-L1. 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 INTERVERTEBRAL DISCS: T12-L1: No significant signal abnormality, posterior disc protrusion, central canal stenosis, or foraminal narrowing based on the sagittal images. L1-2, L2-3, L3-4: No significant signal abnormality, posterior disc protrusion, central canal stenosis, or foraminal narrowing. L4-5: Very mild disc bulge with facet arthropathy superimposed on a developmentally narrow spinal canal resulting in moderate narrowing of the thecal sac and mild left greater than right foraminal narrowing. L5-S1: Mild posterior disc protrusion with annular fissure and facet arthropathy superimposed on a developmentally narrow spinal canal resulting in mild narrowing of the thecal sac and bilateral foraminal narrowing. Bilateral posterior synovial cysts present. SOFT TISSUES: No paraspinal fluid collection. MRI/Spine Lumbar (Routine) IMPRESSION: Mild degenerative change of the lower lumbar spine as above. Electronically Signed: Xiomara Spear MD at 14:20 EDT ,
== END | disposition home or self-care (01) ==
LOC: MRI 15:02
PROVIDERS: PCP Family Medicine; Referring Provider Family Medicine; Visit Provider Family Medicine
DX: M54.50 Low back pain, unspecified (principal)
CPT/HCPCS: 72148